=== PATIENT | male | born 1975 | race Caucasian/White ===

== ENCOUNTER 2020-06-04 18:41 | Emergency (ER) | payer BC ==
[2020-06-04 18:53] VITALS: BP 143/92; PULSE 94
[2020-06-04] MEDS ORDERED: Diphtheria,Pertussis(Acell),Tetanus Vaccine 0.5 ML Syringe IM ONE (19:24)
[2020-06-04] MEDS ORDERED: Lidocaine 1% 10 ML MDV INJECT ONE (19:24)
--- NOTE | 2020-06-04 19:27 | EDM.PDOC ---
ED HPI GENERAL MEDICAL PROBLEM - General Chief Complaint: Laceration Stated Complaint: lac to left hand Time Seen by Provider: 06/04/20 19:06 Source of Information: Reports: Patient, RN Notes Reviewed History Limitations: Reports: No Limitations - History of Present Illness INITIAL COMMENTS - FREE TEXT/NARRATIVE: Patient is a 44-year-old male who presents to the ED for a left index finger laceration. Patient notes that he was using a metal molder, and it slipped off of the metal and ended up lacerating his left index finger, this resulted in a 3 cm linear laceration that runs the length of the finger, on the posterior aspect over the PIP joint. Bleeding is controlled at this time. He is not sure of his last tetanus booster but he thinks it has been roughly 16 years ago. He is denying any numbness or tingling, and has good range of motion of the affected digit. Patient denies any other sick-like symptoms, fever/chills, cough/shortness of breath, nausea/vomiting/diarrhea. Left Finger-Index Pain Score (Numeric/FACES): 4 - Related Data Allergies Allergy/AdvReac Type Severity Reaction Status Date / Time No Known Allergies Allergy Verified 06/04/20 18:53 Home Meds: Home Meds Ascorbic Acid [Vitamin C] 2 tab PO DAILY 06/04/20 [History] Multivitamin [Gummi Bear Multivitamin] 2 tab PO DAILY 06/04/20 [History] Past Medical History - Past Surgical History HEENT Surgical History: Reports: Adenoidectomy, Tonsillectomy Musculoskeletal Surgical History: Reports: Other (See Below) Other Musculoskeletal Surgeries/Procedures:: back surgery, herniated lumbar disc, fractured thoracic vertebrae Social & Family History - Tobacco Use Tobacco Use Status *Q: Never Tobacco User - Caffeine Use Caffeine Use: Reports: None - Recreational Drug Use Recreational Drug Use: No ED ROS GENERAL - Review of Systems Review Of Systems: Comprehensive ROS is negative, except as noted in HPI. ED EXAM, SKIN/RASH Exam: See Below Exam Limited By: No Limitations General Appearance: Alert, WD/WN, No Apparent Distress Respiratory/Chest: No Respiratory Distress, Lungs Clear, Normal Breath Sounds, No Accessory Muscle Use, Chest Non-Tender Cardiovascular: Normal Peripheral Pulses, Regular Rate, Rhythm, No Edema Peripheral Pulses: 2+: Radial (L), Radial (R) Extremities: Normal Range of Motion, Normal Capillary Refill Neurological: Alert, Oriented, Normal Cognition, No Motor/Sensory Deficits Psychiatric: Normal Affect, Normal Mood Skin: Warm, Dry, Normal Color, No Rash, Wound/Incision (3 cm linear wound to the posterior aspect of the patient's left index finger. This runs over the DIP joint.) ED SKIN PROCEDURES - Laceration/Wound Repair Left Middle Posterior Digit - 2nd (Index) Appearance: Subcutaneous, Linear, Clean Distal NVT: Neuro & Vascular Intact, No Tendon Injury Anesthetic Type: Local Local Anesthesia - Lidocaine (Xylocaine): 1% Plain Local Anesthetic Volume: 4cc Skin Prep: Chlorhexidine (Hibiciens), Saline Exploration/Debridement/Repair: Wound Explored, In a Bloodless Field, Explored to Base, No Foreign Material Found Closed with: Sutures Lac/Wound length In cm: 3 Suture Size: 4-0 # of Sutures: 6 Suture Type: Prolene, Interrupted, Simple Sterile Dressing Applied: Nurse Tetanus Status Addressed: Yes Complications: No - Splinting Left 2nd Digit Splint Site: left index finger Pre-Procedure NV Status: Normal Post-Procedure NV Status: Normal Splint Material: Aluminum-Foam Provider Post-Splint Application NV Check: NV Status Normal, Good Position Progress/Comments: Finger splint was applied due to the patient's sutures being on the flexor surface of his finger. Course - Vital Signs Last Recorded V/S: Last Vital Signs Temp 96.4 F L 06/04/20 18:49 Pulse 94 06/04/20 18:49 Resp 16 06/04/20 18:49 BP 143/92 H 06/04/20 18:49 Pulse Ox 97 06/04/20 18:49 - Orders/Labs/Meds Orders: Active Orders 24 hr Category Date Time Status Vaccines to be Administered [RC] PER UNIT ROUTINE Care 06/04/20 19:24 Ordered Meds: Medications Discontinued Medications Generic Name Dose Route Start Last Admin Trade Name Freq PRN Reason Stop Dose Admin Diphtheria/Tetanus/Acell Pertussis 0.5 ml 06/04/20 19:24 06/04/20 19:36 Boostrix IM 06/04/20 19:25 0.5 ml .ONCE ONE Administration Lidocaine HCl 10 ml 06/04/20 19:24 06/04/20 19:36 Xylocaine 1% INJECT 06/04/20 19:25 10 ml ONETIME ONE Administration Departure - Departure Time of Disposition: 19:27 Disposition: Home, Self-Care 01 Condition: Good Clinical Impression: Laceration of index finger Qualifiers: Encounter type: initial encounter Damage to nail status: without damage Foreign body presence: without foreign body Laterality: left Qualified Code(s): S61.211A - Laceration without foreign body of left index finger without damage to nail, initial encounter - Discharge Information *PRESCRIPTION DRUG MONITORING PROGRAM REVIEWED*: No *COPY OF PRESCRIPTION DRUG MONITORING REPORT IN PATIENT GLEN: No Instructions: Sutures, Lauren, or Adhesive Wound Closure, [id number] Referrals: Radha Deras MD [Primary Care Provider] - Forms: ED Department Discharge Additional Instructions: You have been evaluated in the ED for your laceration. Sutures will need to stay in for 10 to 14 days. You may return to the ED or any clinic for removal. Please keep this area clean and dry, you may cleanse with regular soap and water. No vigorous scrubbing. Please try to avoid submerging the affected area in water for prolonged periods of time until the sutures are removed. Watch out for signs of infection like increased redness, swelling, pain at the laceration site, or if you should develop any fevers or chills. Please return to ED if your symptoms change or worsen. Sepsis Event Note (ED) - Evaluation Sepsis Screening Result: No Definite Risk - Focused Exam Vital Signs: Vital Signs Temp Pulse Resp BP Pulse Ox 06/04/20 18:49 96.4 F L 94 16 143/92 H 97 - My Orders Last 24 Hours: My Active Orders 06/04/20 19:24 Vaccines to be Administered [RC] PER UNIT ROUTINE - Assessment/Plan Last 24 Hours: My Active Orders 06/04/20 19:24 Vaccines to be Administered [RC] PER UNIT ROUTINE
== END 2020-06-04 20:16 | disposition home or self-care (01) ==
LOC: JD.ED 18:41
DX: S61.211A Laceration without foreign body of left index finger without damage to nail, initial encounter (principal); Z23 Encounter for immunization; W26.8XXA Contact with other sharp object(s), not elsewhere classified, initial encounter
CPT/HCPCS: 12002; 90471; 90715; 99282-25; 99283

== ENCOUNTER 2021-09-05 08:14 | Emergency (ER) | payer BC ==
[2021-09-05] MEDS ORDERED: Fluorescein 1 MG Ophth Strip EYELF ONE (08:28)
[2021-09-05 08:34] VITALS: BP 140/100; PULSE 78
[2021-09-05] MEDS ORDERED: Ciprofloxacin 0.3% Ophth Soln 5 ML Bottle EYELF ONE (08:43)
== END 2021-09-05 08:53 | disposition home or self-care (01) ==
LOC: JD.ED 08:14
DX: T15.02XA Foreign body in cornea, left eye, initial encounter (principal)
CPT/HCPCS: 65222; 99283; A9270; 65220